=== PATIENT | female | born 1965 | race Caucasian/White ===

== ENCOUNTER 2023-02-03 13:07 | Emergency (ER) | payer OTHER, BC ==
[2023-02-03] MEDS ORDERED: HYDROcodone/Acetaminophen 5/325 mg Tablet ONE (15:04)
[2023-02-03] MEDS ORDERED: Ketorolac Tromethamine 30 MG/ML VIAL ONE (17:54)
== END 2023-02-03 18:20 | disposition home or self-care (01) ==
LOC: ERS 13:07
DX: S09.90XA Unspecified injury of head, initial encounter (principal); M25.512 Pain in left shoulder; R07.81 Pleurodynia; W01.10XA Fall on same level from slipping, tripping and stumbling with subsequent striking against unspecified object, initial encounter
CPT/HCPCS: 96372; J1885

== ENCOUNTER 2023-05-30 12:19 | Outpatient (CLI) | payer BC | END 2023-05-30 12:20 | disposition home or self-care (01) | LOC: BICMAMMO 12:19 | PROVIDERS: ATTEND Family Medicine | DX: Z12.31 Encounter for screening mammogram for malignant neoplasm of breast (principal) | CPT/HCPCS: 77063; 77067 ==

== ENCOUNTER 2023-06-07 10:08 | Outpatient (CLI) | payer BC | END 2023-06-07 10:09 | disposition home or self-care (01) | LOC: MRI 10:08 | PROVIDERS: ATTEND Neurological Surgery | DX: M47.12 Other spondylosis with myelopathy, cervical region (principal); M50.021 Cervical disc disorder at C4-C5 level with myelopathy | CPT/HCPCS: 72050; 72141 ==

== ENCOUNTER 2023-09-26 11:32 | Outpatient (CLI) | payer BC ==
[2023-09-26 12:06] LABS: Hematocrit 37.1 % (34.9-44.5); Hemoglobin 12.3 g/dL (12.0-15.5); Mean Corpuscular HGB CONC 33.2 g/dL (32.0-36.0); Mean Corpuscular Hemoglobin 31.5 pg (27.0-33.0); Mean Corpuscular Volume 95.1 fl (81.6-98.3); Mean Platelet Volume 10.9 fl (7.4-10.4); Platelet Count 204 10x3/uL (150-450); White Blood Cell (WBC) Count 7.6 10x3/uL (3.5-10.5)
[2023-09-26 12:19] LABS: INR-International Normal Ratio 0.9; PTT 27.9 sec (22.0-33.0); Prothrombin Time 9.8 sec (9.5-12.1)
== END 2023-09-26 11:33 | disposition home or self-care (01) ==
LOC: LABBT 11:32
PROVIDERS: ATTEND Neurological Surgery
DX: Z01.812 Encounter for preprocedural laboratory examination (principal); M50.222 Other cervical disc displacement at C5-C6 level; M50.221 Other cervical disc displacement at C4-C5 level
CPT/HCPCS: 85027; 85610; 85730

== ENCOUNTER 2023-10-01 07:30 | Day surgery (SDC) | payer BC ==
[2023-10-01] MEDS ORDERED: fentaNYL PF 100 MCG/2 ML SYRINGE ONE (07:43)
[2023-10-01] MEDS ORDERED: PROPOFOL 20 ML ONE (07:43)
[2023-10-01] MEDS ORDERED: Lidocaine 1% PF 5 ML VIAL ONE (07:45)
[2023-10-01] MEDS ORDERED: Rocuronium Bromide 10 MG/ML (10ML VIAL) ONE (07:45)
[2023-10-01] MEDS ORDERED: Vancomycin 1 GM VIAL ONE (10:02)
[2023-10-01] MEDS ORDERED: Thrombin 5000 UNITS/5 ML VIAL ONE (10:02)
[2023-10-01] MEDS ORDERED: Sodium Chloride 0.9% 100 ML ONE (10:38)
[2023-10-01] MEDS ORDERED: CEFAZOLIN 2 GM VIAL ONE (10:38)
[2023-10-01] MEDS ORDERED: PHENYLEPHRINE-NS 100 MCG/ML 10 ML SYRINGE ONE (11:06)
[2023-10-01] MEDS ORDERED: ePHEDrine Sulfate 50 MG/10 ML VIAL ONE (11:45)
[2023-10-01] MEDS ORDERED: Ondansetron PF 4 MG/2 ML Vial ONE (12:49)
[2023-10-01] MEDS ORDERED: Dexamethasone 4 mg/ml Vial ONE (12:49)
[2023-10-01] MEDS ORDERED: SUGAMMADEX SODIUM 200 MG/2 ML VIAL ONE (12:52)
[2023-10-01] MEDS ORDERED: fentaNYL 50 mcg/mL 1 mL Vial ONE ×4 (13:14→14:00)
[2023-10-01] MEDS ORDERED: HYDROcodone/Acetaminophen 7.5/325 mg Tablet ONE (14:38)
[2023-10-01] MEDS ORDERED: Cyclobenzaprine 10 MG TAB ONE (15:11)
== END 2023-10-01 15:30 | disposition home or self-care (01) ==
LOC: SDC 07:30
PROVIDERS: ATTEND Neurological Surgery
PROC: 0RG20A0 Fusion of 2 or more Cervical Vertebral Joints with Interbody Fusion Device, Anterior Approach, Anterior Column, Open Approach (ICD-10-PCS; principal; 2023-10-01)
DX: M47.12 Other spondylosis with myelopathy, cervical region (principal); M50.221 Other cervical disc displacement at C4-C5 level; F41.9 Anxiety disorder, unspecified; D64.9 Anemia, unspecified; F32.A Depression, unspecified; R51.9 Headache, unspecified; Z90.49 Acquired absence of other specified parts of digestive tract; Z79.899 Other long term (current) drug therapy; Z79.82 Long term (current) use of aspirin
CPT/HCPCS: C1713; J1100; J2405; J2704; J3010; J3370; J3490